=== PATIENT | male | born 1970 | race Caucasian/White ===

== ENCOUNTER 2023-09-25 18:10 | Emergency (ER) | payer OTHER ==
[2023-09-25 18:24] VITALS: BMI 37.3
[2023-09-25] MEDS ORDERED: ACETAMINOPHEN INJECTION 100 ML IVPB ONE (20:09)
[2023-09-25] MEDS ORDERED: LIDOCAINE 4% PATCH TP ONE (20:09)
[2023-09-25] MEDS: ACETAMINOPHEN 1000 MG/100 ML BAG IVPB ONE (20:19)
[2023-09-25] MEDS: LIDOCAINE 4% PATCH TP ONE (20:20)
[2023-09-25 20:39] LABS: BASO % 0.5 % (0-2.0); EOS % 3.2 % (0-4.5); HEMATOCRIT 43.8 % (35.4-49); HEMOGLOBIN 14.1 GM/dL (11.7-16.9); LYMPH % 25.7 % (8-40); MCH 25.3 pg (25.7-33.7); MCHC 32.1 g/dl (32.0-35.9); MEAN CELL VOLUME 78.8 fl (80-96); MEAN PLT VOLUME 7.5 fl (7.5-11.1); MONO % 5.7 % (3.8-10.2); NEUT % 64.9 % (42.8-82.8); PLATELET COUNT 289 10^3/uL (134-434); RBC 5.55 M/mm3 (4.00-5.60); RDW 12.8 % (11.9-15.9); WHITE BLOOD COUNT 8.3 K/mm3 (4.0-10.0)
[2023-09-25 20:40] LABS: POTASSIUM 4.4 mmol/L (3.5-5.1)
[2023-09-25 20:43] LABS: CALCIUM 9.5 mg/dL (8.5-10.1)
[2023-09-25 20:44] LABS: BLOOD UREA NITROGEN 15.4 mg/dL (7-18); MAGNESIUM 2.2 mg/dL (1.8-2.4)
[2023-09-25 20:47] LABS: CREATININE 1.1 mg/dL (0.55-1.3)
[2023-09-25 20:48] LABS: BILIRUBIN,TOTAL 0.6 mg/dL (0.2-1)
[2023-09-25 20:49] LABS: TOT PROT 6.7 g/dl (6.4-8.2)
[2023-09-25 20:50] LABS: INR 1.04 (0.83-1.09); PROTHROMBIN TIME (PATIENT) 12.1 SEC (9.7-13.0)
[2023-09-25] MEDS ORDERED: LIDOCAINE PATCH REMOVAL MC SCH (22:00)
[2023-09-25] MEDS ORDERED: KETOROLAC TROMETHAMINE 15 MG/ML VIAL ONE (22:11)
[2023-09-25] MEDS: KETOROLAC TROMETHAMINE 15 MG/ML VIAL IVPUSH ONE (22:15)
[2023-09-25 22:39] VITALS: BP 121/84; PULSE 70; RESP 20; TEMP 97.5
== END 2023-09-25 22:55 | disposition home or self-care (01) ==
LOC: JER 18:10
PROC: 3E033NZ Introduction of Analgesics, Hypnotics, Sedatives into Peripheral Vein, Percutaneous Approach (ICD-10-PCS; principal; 2023-09-25)
PROC: 3E0333Z Introduction of Anti-inflammatory into Peripheral Vein, Percutaneous Approach (ICD-10-PCS; 2023-09-25)
DX: M79.601 Pain in right arm (principal); R07.2 Precordial pain; M79.602 Pain in left arm; Z20.822 Contact with and (suspected) exposure to COVID-19
CPT/HCPCS: 0241U-QW; 36415; 71045-TC-FY; 73030-TC-LT-FY; 73030-TC-RT-FY; 80053; 83735; 84484; 85025; 85379; 85610; 85730; 93005; 93010; 99285-25; J0131